=== PATIENT | male | born 1985 | race Caucasian/White ===

== ENCOUNTER 2018-10-04 12:25 | Emergency (ER) | payer SELFPAY ==
--- NOTE | 2018-10-04 12:42 | ERPHSYRPT ---
- History of Present Illness Time Seen by Provider: 10/04/18 12:42 Historian: patient Exam Limitations: no limitations Physician History: Pancreatitis - "I believe I have a flare up of Pancreatitis" On initial history told me last flare up 2 months ago; RN overheard and reminded him that he said he was overnight in [place] last night - for pain control and dx of pancreatitis. Allergies/Adverse Reactions: ketorolac Adverse Reaction (Verified 10/04/18 13:02) Home Medications: Insulin Aspart [NovoLOG Insulin] 10 unit SQ TIDWM 10/04/18 [History] Insulin Glargine [Lantus Insulin] 1 unit SQ HS 10/04/18 [History] Lipase/Protease/Amylase [Zenpep Dr 10,000 Units Capsule] 1 each PO TIDWM [History] - Nursing Vital Signs Nursing Vital Signs: Initial Vital Signs Temperature 97.9 F 10/04/18 12:30 Pulse Rate 71 10/04/18 12:30 Blood Pressure 171/104 10/04/18 12:30 O2 Sat by Pulse Oximetry 100 10/04/18 12:30 Pain Scale Pain Intensity 8 - Course Nursing assessment & vital signs reviewed: Yes Ordered Tests: Active Orders 24 hr Category Date Time Status AMYLASE Stat Lab 10/04/18 13:15 Completed CBC W DIFF Stat Lab 10/04/18 13:15 Completed CMP Stat Lab 10/04/18 13:15 Completed LIPASE Stat Lab 10/04/18 13:15 Completed Medication Summary Generic Name Dose Route Start Last Admin Trade Name Freq PRN Reason Stop Dose Admin Sodium Chloride 1,000 mls @ 999 mls/hr 10/04/18 13:16 10/04/18 13:27 Sodium Chloride 0.9% 1000 Ml IV 10/04/18 14:16 999 mls/hr .Q1H1M STA Administration Discontinued Medications Generic Name Dose Route Start Last Admin Trade Name Freq PRN Reason Stop Dose Admin Sodium Chloride Confirm 10/04/18 13:26 Sodium Chloride 0.9% 1000 Ml Administered 10/04/18 13:27 Dose 1,000 mls @ ud .ROUTE .STK-MED ONE Ondansetron HCl 4 mg 10/04/18 13:28 10/04/18 13:35 Zofran 4 Mg/2 Ml Vial IV 10/04/18 13:29 4 mg STAT ONE Administration Ondansetron HCl Confirm 10/04/18 13:33 Zofran 4 Mg/2 Ml Vial Administered 10/04/18 13:34 Dose 4 mg .ROUTE .STK-MED ONE Lab/Rad Data: Laboratory Result Diagrams 10/04/18 13:15 10/04/18 13:15 Laboratory Results 10/04/18 10/04/18 Range/Units 13:15 13:15 WBC 6.4 (4.0-10.5) K/mm3 RBC 3.58 L (4.1-5.6) M/mm3 Hgb 11.8 L (12.5-18.0) gm/dl Hct 34.1 L (42-50) % MCV 95.3 (78-100) fl MCH 32.9 H (26-32) pg MCHC 34.6 (32-36) g/dl RDW 12.4 (11.5-14.0) % Plt Count 164 (150-450) K/mm3 MPV 10.7 H (6-9.5) fl Gran % 66.6 H (36.0-66.0) % Eos # (Auto) 0.05 (0-0.5) Absolute Lymphs (auto) 1.57 (1.0-4.6) Absolute Monos (auto) 0.48 (0.0-1.3) Lymphocytes % 24.7 (24.0-44.0) % Monocytes % 7.6 (0.0-12.0) % Eosinophils % 0.8 (0.00-5.0) % Basophils % 0.3 (0.0-0.4) % Absolute Granulocytes 4.23 (1.4-6.9) Basophils # 0.02 (0-0.4) Sodium 139 (137-145) mmol/L Potassium 3.6 (3.5-5.1) mmol/L Chloride 104 (98-107) mmol/L Carbon Dioxide 24 (22-30) mmol/L Anion Gap 14.5 (5-15) MEQ/L BUN 8 L (9-20) mg/dL Creatinine 0.87 (0.66-1.25) mg/dL Estimated GFR > 60.0 ML/MIN Glucose 384 H (74-106) mg/dL Calcium 8.9 (8.4-10.2) mg/dL Total Bilirubin 0.80 (0.2-1.3) mg/dL AST 65 H (17-59) U/L ALT 53 H (0-50) U/L Alkaline Phosphatase 70 (38-126) U/L Serum Total Protein 7.3 (6.3-8.2) g/dL Albumin 4.2 (3.5-5.0) g/dL Amylase 53 (30-110) U/L Lipase < 10 L (23-300) U/L - Progress Progress: unchanged Progress Note: 10/04/18 14:15 Patient stated that the nausea medication had not helped and that he needs pain medication - cannot take Toradal. I advised the patient that we had sent his signed papers to [facility] to find out what they had done (presumably CT scan though in intake patient did not know what all they had done - just told him he had pancreatitis and pain control). I advised patient that his Lipase and Amylase did not indicate a pancreatitis and the white blood cell count was normal and did not suggest an infecious process. Patient shortly thereafter told RN that if he was not going to get pain medication he might as well drive back to [place] to be seen there again. Patient signed out AMA; did not want to wait for resullts of our inquiry of [facility]. - Departure Referrals: IRINA DUVALL MD [Primary Care Provider] -
[2018-10-04] MEDS ORDERED: Sodium Chloride 0.9% 1000 ML 1,000 ML IV STA (13:16)
[2018-10-04 13:20] LABS: BASOPHIL % 0.3 % (0.0-0.4); Basophil (Absolute #) 0.02 (0-0.4); Eosinophil % 0.8 % (0.00-5.0); Eosinophil (Absolute #) 0.05 (0-0.5); Granulocyte Absolute (ANC) 4.23 (1.4-6.9); Granulocytes % 66.6 % (36.0-66.0); Hematocrit 34.1 % (42-50); Hemoglobin 11.8 gm/dl (12.5-18.0); Lymphocyte (Absolute #) 1.57 (1.0-4.6); Lymphocytes % 24.7 % (24.0-44.0); Mean Cell Volume 95.3 fl (78-100); Mean Corpuscular Hgb Concent. 34.6 g/dl (32-36); Mean Platelet Volume 10.7 fl (6-9.5); Monocyte (Absolute #) 0.48 (0.0-1.3); Monocytes % 7.6 % (0.0-12.0); Platelet Count 164 K/mm3 (150-450); Red Blood Count 3.58 M/mm3 (4.1-5.6); Red Cell Distribution Width 12.4 % (11.5-14.0); White Blood Count 6.4 K/mm3 (4.0-10.5)
[2018-10-04 13:22] LABS: Mean Corpuscular Hemoglobin 32.9 pg (26-32)
[2018-10-04] MEDS ORDERED: Sodium Chloride 0.9% 1000 ML 1,000 ML ONE (13:26)
[2018-10-04] MEDS ORDERED: Zofran 4 MG/2 ML VIAL IV ONE (13:28)
[2018-10-04] MEDS ORDERED: Zofran 4 MG/2 ML VIAL ONE (13:33)
[2018-10-04 13:43] VITALS: BP 179/95; PULSE 70; O2SAT 97
[2018-10-04 13:43] LABS: ALBUMIN 4.2 g/dL (3.5-5.0); ALKALINE PHOSPHATASE 70 U/L (38-126); AMYLASE 53 U/L (30-110); ANION GAP 14.5 MEQ/L (5-15); BLOOD UREA NITROGEN 8 mg/dL (9-20); CHLORIDE 104 mmol/L (98-107); Calcium 8.9 mg/dL (8.4-10.2); Carbon Dioxide 24 mmol/L (22-30); Creatinine 1 0.87 mg/dL (0.66-1.25); Glucose 384 mg/dL (74-106); Potassium 3.6 mmol/L (3.5-5.1); SGOT/AST 65 U/L (17-59); SGPT/ALT 53 U/L (0-50); SODIUM 139 mmol/L (137-145); Total Protein 7.3 g/dL (6.3-8.2)
[2018-10-04 13:44] LABS: LIPASE < 10 U/L (23-300)
[2018-10-04 14:46] LABS: Adenovirus F 40/41 NEGATIVE (NEGATIVE); Astrovirus NEGATIVE (NEGATIVE); C. Difficile Organism NEGATIVE (NEGATIVE); Campylobacter NEGATIVE (NEGATIVE); Cryptosporidium NEGATIVE (NEGATIVE); Cyclospora cayentanensis NEGATIVE (NEGATIVE); Entamoeaba histolytica NEGATIVE (NEGATIVE); Enteroaggregative E.coli NEGATIVE (NEGATIVE); Enteropathogenic E.coli NEGATIVE (NEGATIVE); Enterotoxigenic E.coli NEGATIVE (NEGATIVE); Giardia lamblia NEGATIVE (NEGATIVE); Norovirus GI/GII POSITIVE (NEGATIVE); Plesiomonas shigelloides NEGATIVE (NEGATIVE); Rotavirus A NEGATIVE (NEGATIVE); Salmonella NEGATIVE (NEGATIVE); Sapovirus NEGATIVE (NEGATIVE); Shiga-like toxin prod.E.coli NEGATIVE (NEGATIVE); Vibrio NEGATIVE (NEGATIVE); Vibrio cholerae NEGATIVE (NEGATIVE); Yersinia enterocolitica NEGATIVE (NEGATIVE)
== END 2018-10-04 14:22 | disposition home or self-care (01) ==
LOC: ED 12:25
DX: R10.9 Unspecified abdominal pain (principal)
CPT/HCPCS: 36000; 36415; 80053; 82150; 83690; 85025; 87507; 96360; 96374; 99284; J2405